=== PATIENT | male | born 1995 | race Hispanic/Latino ===

== ENCOUNTER 2021-02-11 16:31 | Emergency (ER) | payer SELFPAY ==
[2021-02-11] MEDS ORDERED: TETANUS,DIPHTHERIA TOXOID ADULT 0.5 ML INJ IM ONE (18:23)
[2021-02-11] MEDS ORDERED: LIDOCAINE (1%) 10 MG/1 ML VIAL 20 ML MDV INFILTRATI ONE (18:24)
--- NOTE | 2021-02-11 18:28 | Event Note ---
ED Screening Note Date of service: 02/11/21 Time: 18:25 ED Screening Note: This initial assessment/diagnostic orders/clinical plan/treatment(s) is/are subject to change based on patients health status, clinical progression and re- assessment by fellow clinical providers in the ED. Further treatment and workup at subsequent clinical providers discretion. Patient/guardian urged not to elope from the ED as their condition may be serious if not clinically assessed and managed. Initial orders include: 25-year-old morbidly obese male states he was doing yard work when he accidentally lacerated his left forearm while cutting hiro. He has a 5 cm gaping wound to his left forearm no active bleeding. On evaluation patient's heart rate is found to be 140 BP 191/94. Patient denies any past medical history he denies any drug use he denies any history of anxiety. He denies chest pain and shortness of breath.
--- NOTE | 2021-02-11 18:32 | Emergency Department Report ---
- Laceration /Wound Repair Left Arm Wound Location: upper extremity Wound Length (cm): 5 Wound's Depth, Shape: superficial Betadine Prep?: Yes Anesthesia: 1% Lidocaine Volume Anesthetic (ccs): 10 Wound Repaired With: sutures Suture Size/Type: 4:0, proline Number of Sutures: 8 Layer Closure?: No Sterile Dressing Applied?: Yes Progress: 5 cm laceration to the left forearm's it was sutured patient tolerated well distal pulses intact wound care instructions given have sutures removed in 7 to 10 days.
--- NOTE | 2021-02-11 19:08 | Emergency Department Report ---
ED General Adult HPI - General Chief complaint: Wound/Laceration Stated complaint: LEFT ARM LAC PUI?: No Time Seen by Provider: 02/11/21 18:56 Source: patient, RN notes reviewed Mode of arrival: Ambulatory Limitations: No Limitations - History of Present Illness Initial comments: The patient was evaluated in the emergency department for symptoms described in the history of present illness. He/she was evaluated in the context of the global COVID-19 pandemic, which necessitated consideration that the patient might be at risk for infection with the virus that causes COVID-19. Institutional protocols and algorithms that pertain to the evaluation of patients at risk for COVID-19 are in a state of rapid change based on infor mation released by regulatory bodies including the CDC and federal and state organizations. These policies and algorithms were followed during the patient's care in the emergency department. Please note that these policies, procedures and recommendations changed on a rapid basis. The patient is a 25-year-old gentleman, who is right-hand dominant, who has no chronic medical conditions, who presents to the ER with accidental left forearm laceration. Patient believes he requires a tetanus vaccination. Patient states that he was cutting hiro outside with a knife, and he accidentally cut his left proximal dorsal forearm. The patient has no other injuries or complaints, although he does admit that he is somewhat anxious. He reports a history of chronic anxiety when associate with healthcare situations. However, he denies DVT and pulmonary embolism risk factors, sleepiness at night, and known history of obstructive sleep apnea. His laceration was repaired by the nurse practitioner, please see her note, and he reports improvement in his laceration, and no other complaints or concerns, and endorses readiness for discharge. To the best of his recollection, he does not have a history of hypertension. -: Sudden, This evening Location: left, upper extremity Consistency: constant Improves with: none Worsens with: none Associated Symptoms: denies other symptoms, other (Anxiety) - Related Data Allergies Allergy/AdvReac Type Severity Reaction Status Date / Time No Known Allergies Allergy Unverified 02/11/21 17:42 ED Review of Systems ROS: Stated complaint: LEFT ARM LAC Other details as noted in HPI Comment: All other systems reviewed and negative Psychiatric: anxiety ED Past Medical Hx - Past Medical History Previous Medical History?: No - Surgical History Past Surgical History?: No - Social History Smoking Status: Never Smoker ED Physical Exam - General Limitations: No Limitations General appearance: alert, in no apparent distress, anxious, obese - Head Head exam: Present: atraumatic, normocephalic - Eye Eye exam: Present: normal appearance, EOMI. Absent: nystagmus - ENT ENT exam: Present: normal exam, normal orophraynx, mucous membranes moist, normal external ear exam - Neck Neck exam: Present: normal inspection, full ROM. Absent: tenderness, meningismus - Respiratory Respiratory exam: Present: normal lung sounds bilaterally. Absent: respiratory distress, wheezes, rales, rhonchi, stridor, decreased breath sounds - Cardiovascular Cardiovascular Exam: Present: normal rhythm, tachycardia, normal heart sounds. Absent: bradycardia, irregular rhythm, systolic murmur, diastolic murmur, rubs, gallop - GI/Abdominal GI/Abdominal exam: Present: soft. Absent: distended, tenderness, guarding, rebound, rigid, pulsatile mass - Rectal Rectal exam: Present: deferred - Extremities Exam Extremities exam: Present: normal inspection (The bilateral upper and lower extremities are unremarkable, with the exception of the left posterior dorsal forearm, which has a simple laceration of approximately 6 cm.), full ROM (No obvious foreign bodies are noted.), normal capillary refill, other (2+ pulses noted in the bilateral upper and lower extremities. There is no palpable cord. negative Homans sign. Muscular compartments are soft. The pelvis is stable.). Absent: pedal edema, calf tenderness - Back Exam Back exam: Present: normal inspection. Absent: tenderness, CVA tenderness (R), CVA tenderness (L), paraspinal tenderness, vertebral tenderness - Neurological Exam Neurological exam: Present: alert, oriented X3, normal gait, other (No facial droop. Tongue midline. Extraocular movements intact bilaterally. Facial sensation intact to light touch in V1, V2, V3 distribution bilaterally. 5 and a 5 strength in 4 extremities. Sensation intact to light touch in 4 extremities.). Absent: motor sensory deficit - Psychiatric Psychiatric exam: Present: anxious - Skin Skin exam: Present: warm, dry, intact, normal color, other (Laceration noted to the left forearm. There is no pus or streaking. There is minimal tenderness. There is no crepitus.). Absent: rash ED Course Vital Signs 02/11/21 02/11/21 17:35 19:57 Temperature 98.3 F Pulse Rate 140 H 102 H Respiratory 18 20 Rate Blood Pressure 191/94 Blood Pressure 152/92 [Left] O2 Sat by Pulse 99 96 Oximetry - Reevaluation(s) Reevaluation #1: 02/11/21 20:43 Please reference the [employer] clinical policy on asymptomatic hypertension/elevated blood pressure. - Pulse Oximetry Interpretation Digit-Finger Initial Pulse Oximetry Readin O2 Sat by Pulse Oximetry: 99 Actions Taken: none ED Medical Decision Making - Lab Data Vital Signs 02/11/21 02/11/21 17:35 19:57 Temperature 98.3 F Pulse Rate 140 H 102 H Respiratory 18 20 Rate Blood Pressure 191/94 Blood Pressure 152/92 [Left] O2 Sat by Pulse 99 96 Oximetry - Medical Decision Making Differential diagnosis, including but not limited to: Forearm laceration, body mass index greater than 50, anxiety, tachycardia, elevated blood pressure Assessment and plan: 25-year-old gentleman, who is right-hand dominant, with a complaint of left forearm laceration. His laceration was repaired and copiously irrigated and cleansed by the nurse practitioner. He was given a tetanus vaccination. He has no neurovascular deficits, and all of his upper extremity tendons are intact. He denies DVT and pulmonary embolism risk factors, he is low risk by Wells criteria for pulmonary embolism, and on my examination, tachycardia has resolved, heart rate 98 bpm. He can follow-up with an outpatient primary care doctor for body mass index of 53, and incidental elevated blood pressure. On multiple repeat evaluations, patient playing/talking on his cellular phone, watching TV, and does not appear to be in any acute distress. He states he is reliable to follow-up. Return precautions are reviewed. Patient has endorsed understanding. He felt improved after Xanax. Critical care attestation.: If time is entered above; I have spent that time in minutes in the direct care of this critically ill patient, excluding procedure time. ED Disposition Clinical Impression: Elevated blood pressure reading, Body mass index (BMI) greater than 50 Laceration of left forearm Qualifiers: Encounter type: initial encounter Qualified Code(s): S51.812A - Laceration without foreign body of left forearm, initial encounter Disposition: DC-01 TO HOME OR SELFCARE Is pt being admited?: No Does the pt Need Aspirin: No Condition: Good Instructions: Laceration Care, Adult, Preventing Hypertension, Sutured Wound Care, [id number] Additional Instructions: Patient may wash the laceration site with gentle soap and water once every 12-24 hours. Please keep the area dry, and covered otherwise. Avoid exposure to sun, and to dirt. Please follow-up with your primary care doctor, urgent care center, or return to this emergency room in 7 to 10 days to have sutures taken out. Patient may take [id number] ibuprofen, 400 mg by mouth, with food, every 6 hours as needed for pain, alternating with Tylenol/acetaminophen, 650 mg by mouth, every 4-6 hours, as needed for pain. Recommend aggressive weight loss, physical activity and exercise as tolerated, and follow-up with your primary care doctor within the next month for recheck on elevated blood pressure, and body mass index of 53. For the patient's convenience, local primary care providers have been listed. Please return to the emergency room right away with new pain, worsened pain, migration of pain, projectile vomiting, change in mental status, confusion, inability to tolerate liquid feeds, new, worsened or different symptoms not present on the initial emergency room evaluation. Referrals: PRIMARY MD SHARMILA [Primary Care Provider] - 3-5 Days GISELLA BOLDEN MD [Staff Physician] - 3-5 Days [facility] [Provider Group] - 3-5 Days
[2021-02-11] MEDS ORDERED: ALPRAZolam 1 MG TAB PO ONE (19:18)
[2021-02-11] MEDS ORDERED: TETANUS,DIPH,PERTUSS(ACELL) VACCINE 0.5 ML SYRINGE IM ONE (19:49)
[2021-02-11 19:59] VITALS: BP 152/92
== END 2021-02-11 21:05 | disposition home or self-care (01) ==
LOC: ED 16:31
DX: S51.812A Laceration without foreign body of left forearm, initial encounter (principal); R03.0 Elevated blood-pressure reading, without diagnosis of hypertension; W26.0XXA Contact with knife, initial encounter; Y93.89 Activity, other specified; Y92.89 Other specified places as the place of occurrence of the external cause; Y99.8 Other external cause status
CPT/HCPCS: 90471; 90715